=== PATIENT | female | born 2000 | race Caucasian/White ===

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

== ENCOUNTER 2021-04-08 06:39 | Emergency (ER) | payer OTHER ==
[~2021-04-08] VITALS: Ht 160 cm; Wt 49.4 kg
[~2021-04-08 06:39] MED LIST: DOXY100C2 PO; FLUC100T7 PO
--- NOTE | 2021-04-08 07:11 | PHYS DOC ---
Past History Past Medical History: No Pertinent History Past Surgical History: No Surgical History Alcohol Use: None Adult General Chief Complaint Chief Complaint: ABDOMINAL PAIN HPI HPI Patient is a healthy 20-year-old female presenting for right lower quadrant pain. Onset was 2 hours prior to arrival. 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 Reports she was getting up and putting on her daily uniform when bending over and jarring motions of her right leg caused exacerbation of her sharp right lower quadrant pain that did not radiate. Being still makes better. Reports pain is severe during movement and twisting and palpation otherwise if she lays still she is asymptomatic. No recent fever, sick contacts, recent travel, exposure, trauma or UTI-like symptoms reported Review of Systems Review of Systems Fourteen body systems of review of systems have been reviewed. See HPI for pertinent positives and negative responses, other kelly all other systems are negative, non-pertinent or non-contributory Allergies Allergies Allergies Coded Allergies Type Severity Reaction Last Updated Verified No Known Allergies Allergy Unknown 04/08/21 Yes Physical Exam Physical Exam Constitutional: Well developed, well nourished, no acute distress, non-toxic appearance. HENT: Normocephalic, atraumatic, bilateral external ears normal, oropharynx moist, no oral exudates, nose normal. Eyes: PERRLA, EOMI, conjunctiva normal, no discharge. Neck: Normal range of motion, no tenderness, supple, no stridor. Cardiovascular: Heart rate regular, sinus rhythm, no murmurs rubs or gallops Lungs & Thorax: Bilateral breath sounds clear to auscultation Abdomen: Bowel sounds normal, soft, no guarding or rebound but there is point tenderness to McBurney's point and right lower quadrant, negative Denise's sign, positive obturator and positive heel strike, no masses, no pulsatile masses. Skin: Warm, dry, no erythema, no rash. Back: No tenderness, no CVA tenderness. Extremities: No tenderness, no cyanosis, no clubbing, ROM intact, no edema. Neurologic: Alert and oriented X 3, grossly normal motor & sensory function, no focal deficits noted. Psychologic: Affect normal, judgement normal, mood normal. Current Patient Data Vital Signs Vital Signs Date Time Temp Pulse Resp B/P (MAP) Pulse Ox O2 Delivery O2 Flow Rate FiO2 04/08/21 06:53 98.0 76 18 103/59 (74) 99 Lab Results Laboratory Tests Test 04/08/21 07:00 04/08/21 07:07 Urine Collection Type Unknown Urine Color Yellow Urine Clarity Clear Urine pH 6.0 Urine Specific Ulysses >=1.030 Urine Protein Neg Urine Glucose (UA) Neg mg/dL Urine Ketones (Stick) Neg mg/dL Urine Blood Large Urine Nitrite Neg Urine Bilirubin Neg Urine Urobilinogen Dipstick 0.2 mg/dL Urine Leukocyte Esterase Neg Urine RBC 3-5 /HPF Urine WBC 0 /HPF Urine Squamous Epithelial Cells Occ /LPF Urine Bacteria Few /HPF Bedside Urine HCG, Qualitative hcg negative EKG EKG [] Radiology/Procedures Radiology/Procedures INDICATION: Reason: rlq pain, r/o appendicitis / Spl. Instructions: / History: COMPARISON: None. FINDINGS: Focused ultrasound images are obtained of the right lower quadrant of the abdomen. Bowel loops are seen within the right lower quadrant with the appendix not visualized. IMPRESSION: * Appendix is not visualized. Electronically signed by: Bunny Walls MD (04/08/2021 7:46 AM) [id number] ///////////// EXAMINATION: CT ABDOMEN+PELVIS WO CLINICAL HISTORY: Right lower quadrant pain, periumbilical pain TECHNIQUE: Non-IV contrast imaging of the abdomen and pelvis was performed using standard technique, scanning from just above the dome of the diaphragm to the symphysis pubis. Unenhanced imaging is limited for the evaluation of some intra-abdominal and pelvic pathology. CT Dose Reduction Employed: One or more of the following individualized dose reduction techniques were utilized for this examination: 1. Automated exposure control 2. Adjustment of the mA and/or kV according to patient size 3. Use of iterative reconstruction technique. COMPARISON: Abdominal ultrasound same day FINDINGS: Results are unremarkable. Motion degraded images of the lung bases unremarkable. Liver, gallbladder, pancreas, spleen, adrenal glands, and kidneys unremarkable. Mildly filled urinary bladder. Uterus and adnexa within normal limits for patient's age. No dilated bowel. Air-filled appendix within normal limits. No abdominal aortic or iliac artery aneurysm. No evidence of acute osseous abnormality. IMPRESSION: No evidence of acute abdominopelvic abnormality. Electronically signed by: Andrew Denis DO (04/08/2021 8:35 AM) [id number] Heart Score C/O Chest Pain: No Risk Factors: Risk Factors: DM, Current or recent (<one month) smoker, HTN, HLP, family history of CAD, obesity. Risk Scores: Risk Factors: DM, Current or recent (<one month) smoker, HTN, HLP, family history of CAD, obesity. Course & Med Decision Making Course & Med Decision Making ABCs unremarkable. I disclosed entirety of ER findings and discussed most likely diagnosis of abdominal pain unspecified. I discussed this could be due to a most likely self-limiting issue such as musculoskeletal strain versus constipation. With that said, I did disclose this might be an acute presentation of more concerning pathology that was not readily apparent during today's examination. I discussed role of laboratory analysis but joint decision to defer at present. As such, I stressed need for close outpatient follow-up to review today's ER visit. Strict return precautions were also discussed at length with good understanding by patient. Patient voiced understanding and agreement with the plan. Patient knows to come back for repeat evaluation if concerning signs or symptoms present prior to outpatient follow-up. Hemodynamically stable, ambulatory and well-appearing at time of disposition. Dragon Disclaimer Dragon Disclaimer This electronic medical record was generated, in whole or in part, using a voice recognition dictation system. Departure Departure: Impression: Primary Impression: Unspecified abdominal pain Disposition: HOME / SELF CARE / HOMELESS Condition: STABLE Referrals: PCP,UNKNOWN (PCP) Patient Instructions: Abdominal Pain (Nonspecific) Additional Instructions: You have been evaluated in the Emergency Department today for abdominal pain. Your evaluation was not suggestive of any emergent condition requiring medical intervention at this time. However, some abdominal problems make take more time to appear. Therefore, it is important for you to watch for any new symptoms or worsening of your current condition. As discussed, please continue supportive care practices such as taking adequate fluid and fiber intake on discharge home. In addition, you need to call your primary care physician and discuss ER visit today and need for follow-up in outpatient setting for repeat examination Return to the Emergency Department if you experience worsening pain, persistent fevers greater than 100.4, recurrent vomiting, blood in vomit, blood in stool, dark tarry stool, chest pain, difficulty breathing, or any other concerning symptoms. VERITO BLUNT DO Apr 08, 2021 07:11
[2021-04-08 07:20] LABS: BILIRUBIN,URINE NEG (NEG); CLARITY,URINE CLEAR; COLOR,URINE YELLOW; GLUCOSE,URINE NEG (NEG); NITRITE,URINE NEG (NEG); UROBILINOGEN,URINE 0.2 mg/dL (0.2 mg/dL)
[2021-04-08 07:21] LABS: BACTERIA,URINE FEW /HPF (0-FEW); SQUAMOUS EPITHELIAL CELL,UR OCC /LPF; WBC,URINE 0 /HPF (0-4)
--- NOTE | 2021-04-08 07:48 | RAD ---
INDICATION: Reason: rlq pain, r/o appendicitis / Spl. Instructions: / History: COMPARISON: None. FINDINGS: Focused ultrasound images are obtained of the right lower quadrant of the abdomen. Bowel loops are seen within the right lower quadrant with the appendix not visualized. IMPRESSION: * Appendix is not visualized. Electronically signed by: Bunny Walls MD (04/08/2021 7:46 AM) [id number]
--- NOTE | 2021-04-08 08:38 | RAD ---
EXAMINATION: CT ABDOMEN+PELVIS WO CLINICAL HISTORY: Right lower quadrant pain, periumbilical pain TECHNIQUE: Non-IV contrast imaging of the abdomen and pelvis was performed using standard technique, scanning from just above the dome of the diaphragm to the symphysis pubis. Unenhanced imaging is zuñiga ited for the evaluation of some intra-abdominal and pelvic pathology. CT Dose Reduction Employed: One or more of the following individualized dose reduction techniques wer e utilized for this examination: 1. Automated exposure control 2. Adjustment of the mA and/or kV ac cording to patient size 3. Use of iterative reconstruction technique. COMPARISON: Abdominal ultrasound same day FINDINGS: Results are unremarkable. Motion degraded images of the lung bases unremarkable. Liver, gallbladder, pancreas, spleen, adrenal glands, and kidneys unremarkable. Mildly filled urinary bladder. Uterus and adnexa within normal limits for patient's age. No dilated bowel. Air-filled appendix within normal limits. No abdominal aortic or iliac artery aneurysm. No evidence of acute osseous abnormality. IMPRESSION: No evidence of acute abdominopelvic abnormality. Electronically signed by: Andrew Denis DO (04/08/2021 8:35 AM) [id number]
[2021-04-08 09:04] VITALS: BP 101/57
== END 2021-04-08 09:05 | disposition home or self-care (01) ==
LOC: ER 06:39
DX: R10.31 Right lower quadrant pain (principal); F41.8 Other specified anxiety disorders
CPT/HCPCS: 74176; 81001; 81025; 93975; 99285-25

== ENCOUNTER 2021-08-07 18:01 | Emergency (ER) | payer OTHER ==
[~2021-08-07] VITALS: Ht 157.5 cm; Wt 50.0 kg
[~2021-08-07 18:01] MED LIST changes: -DOXY100C2 PO; +DOXY100C3 PO
--- NOTE | 2021-08-07 18:09 | PHYS DOC ---
Past History Past Medical History: No Pertinent History Past Surgical History: No Surgical History Alcohol Use: None General Adult HPI: HPI: ... "I hurt my lower leg and basic training pain is in the medial area of my left knee.... I said I had a meniscus tear..... They never really did anything did not have any x-rays. 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 Patient localizes pain in the collateral ligaments. No appreciable click noted on range of motion. Straining of medial ligaments did cause pain. Patient is able do straight leg lift. There is no ballottement with patella. Distal neurovascular is equal to right. Patient has a slight limp of walk. No recent travel outside [facility] area. No specific ill contacts. No history immunosuppression. Patient will be following at [facility] for care. Patient has never had an x-ray or an MRI of the left knee. Review of Systems: Review of Systems: Constitutional: Denies fever or chills Eyes: Denies change in visual acuity HENT: Denies nasal congestion or sore throat Respiratory: Denies cough or shortness of breath Cardiovascular: Denies chest pain or edema GI: Denies abdominal pain, nausea, vomiting, bloody stools or diarrhea : Denies dysuria Musculoskeletal: Complains of left knee pain Integument: Denies rash Neurologic: Denies headache, focal weakness or sensory changes Endocrine: Denies polyuria or polydipsia Lymphatic: Denies swollen glands Psychiatric: Denies depression or anxiety Family History: Family History: Noncontributory to presentation. Current Medications: Current Meds: See nursing for home meds Allergies: Allergies: Allergies Coded Allergies Type Severity Reaction Last Updated Verified No Known Allergies Allergy Unknown 04/08/21 Yes Physical Exam: PE: Constitutional: Well developed, well nourished, moderate acute distress, non- toxic appearance. [] HENT: Normocephalic, atraumatic, bilateral external ears normal, oropharynx moist, no oral exudates, nose normal. [] Eyes: PERRLA, EOMI, conjunctiva normal, no discharge. [] Neck: Normal range of motion, no tenderness, supple, no stridor. [] Cardiovascular:Heart rate regular rhythm, no murmur [] Lungs & Thorax: Bilateral breath sounds clear to auscultation [] Abdomen: Bowel sounds normal, soft, no tenderness, no masses, no pulsatile masses. [] Skin: Warm, dry, no erythema, no rash. [] Back: No tenderness, no CVA tenderness. [] Extremities: No tenderness, no cyanosis, no clubbing, ROM intact, no edema. [] Except findings in left knee as per HPI. Neurologic: Alert and oriented X 3, normal motor function, normal sensory function, no focal deficits noted. [] Psychologic: Affect anxious, judgement normal, mood normal. [] EKG: EKG: [] Radiology/Procedures: Radiology/Procedures: [][place] [id number] IMAGING REPORT Signed PATIENT: ELEUTERIO MOLINA ACCOUNT: [id number] : 2000 LOCATION: ER AGE: 20 SEX: F EXAM STATUS: REG ER ORD. PHYSICIAN: CHRISTEN FERRERA MD REASON: injury during basic training, left knee pain PROCEDURE: KNEE LEFT 4V XR KNEE _4 VIEWS WITH PATELLA_LT DATE: 08/07/2021 6:41 PM INDICATION: injury during basic training, left knee pain COMPARISON: None. FINDINGS: Bones: There is no evidence of acute fracture or dislocation. Joints: The joint spaces are normal. There is no joint effusion. Miscellaneous: None. IMPRESSION: No evidence of acute fracture. Electronically signed by: Caden Orozco MD (08/07/2021 8:01 PM) [facility] [place] DICTATED AND SIGNED BY: CADEN OROZCO MD DATE: 08/07/212000 CC: CHRISTEN FERRERA MD; GINI JAMES MD ~MTH0 0 Heart Score: C/O Chest Pain: N/A Risk Factors: Risk Factors: DM, Current or recent (<one month) smoker, HTN, HLP, family history of CAD, obesity. Risk Scores: Score 0 - 3: 2.5% MACE over next 6 weeks - Discharge Home Score 4 - 6: 20.3% MACE over next 6 weeks - Admit for Clinical Observation Score 7 - 10: 72.7% MACE over next 6 weeks - Early Invasive Strategies Course & Med Decision Making: Course & Med Decision Making Pertinent Labs and Imaging studies reviewed. (See chart for details) Wear splint. Ice. Elevation. Take Tylenol and ibuprofen for pain. Follow-up primary care. Consider orthopedic evaluation. Follow-up with [facility]. Impression: 1. Left collateral ligament injury-medial 2. History of left medial meniscus injury. [] Cesar Disclaimer: Cesar Disclaimer: This electronic medical record was generated, in whole or in part, using a voice recognition dictation system. Departure Departure: Referrals: GINI JAMES MD (PCP) Cesar Disclaimer This chart was dictated in whole or in part using Voice Recognition software in a busy, high-work load, and often noisy Emergency Department environment. It may contain unintended and wholly unrecognized errors or omissions. CHRISTEN FERRERA MD Aug 07, 2021 18:09
[2021-08-07 18:13] VITALS: BP 114/58
[2021-08-07] MEDS ORDERED: KETOROLAC 60 MG/2 ML VIAL. IM ONE (18:30)
[2021-08-07 19:06] LABS: BACTERIA,URINE 0 /HPF (0-FEW); BILIRUBIN,URINE NEG (NEG); CLARITY,URINE CLEAR; COLOR,URINE YELLOW; GLUCOSE,URINE NEG (NEG); NITRITE,URINE NEG (NEG); RBC,URINE 0 /HPF (0-2); SQUAMOUS EPITHELIAL CELL,UR FEW /LPF; UROBILINOGEN,URINE 0.2 mg/dL (0.2 mg/dL); WBC,URINE OCC /HPF (0-4)
--- NOTE | 2021-08-07 20:04 | RAD ---
XR KNEE _4 VIEWS WITH PATELLA_LT DATE: 08/07/2021 6:41 PM INDICATION: injury during basic training, left knee pain COMPARISON: None. FINDINGS: Bones: There is no evidence of acute fracture or dislocation. Joints: The joint spaces are normal. There is no joint effusion. Miscellaneous: None. IMPRESSION: No evidence of acute fracture. Electronically signed by: Dontrell Orozco MD (08/07/2021 8:01 PM) ESTELLE
== END 2021-08-07 21:06 | disposition home or self-care (01) ==
LOC: ER 18:01
DX: S89.92XA Unspecified injury of left lower leg, initial encounter (principal); X58.XXXA Exposure to other specified factors, initial encounter; Y93.89 Activity, other specified; Y92.89 Other specified places as the place of occurrence of the external cause; Y99.8 Other external cause status
CPT/HCPCS: 29505; 73564; 81001; 81025; 99284

== ENCOUNTER 2021-11-11 16:34 | Emergency (ER) | payer OTHER ==
[~2021-11-11] VITALS: Ht 157.5 cm; Wt 49.4 kg
[2021-11-11] MEDS ORDERED: KETOROLAC 15 MG/ML VIAL. IVP ONE (17:30)
[2021-11-11] MEDS ORDERED: IV NORMAL SALINE 1,000ML 1,000 ML IV ONE (17:30)
--- NOTE | 2021-11-11 18:17 | RAD ---
US ABDOMEN LIMITED, US PELVIS W/TV History: Reason: RLQ PAIN / Spl. Instructions: / History: Comparison: None Technique: Grayscale and color Doppler imaging of the pelvis was performed using transabdominal and t ransvaginal technique. Findings: The uterus measures 8.4 x 4.1 x 3.3 cm. Uterus has an unremarkable appearance. The endometrial stri pe measures 9 mm. Right ovary measures 3.0 x 2.6 x 1.2 cm. Left ovary measures 1.8 x 1.9 x 1.4 cm. Normal Doppler flow to the ovaries. No adnexal masses are seen. IMPRESSION: 1. Unremarkable pelvic ultrasound. Electronically signed by: Edmar Rivera DO (11/11/2021 6:15 PM) [facility]
--- NOTE | 2021-11-11 18:39 | PHYS DOC ---
Past History Past Medical History: No Pertinent History Additional Past Medical Histor: PTSD (ALEXSANDER FORBES APRN) Past Surgical History: No Surgical History (ALEXSANDER FORBES APRN) Alcohol Use: None (ALEXSANDER FORBES APRN) General Adult EDM: Chief Complaint: ABDOMINAL PAIN HPI: HPI: Patient is a 21-year-old female who presents to the emergency department for a 2-day history of right lower pelvic/abdominal cramping that was worse this morning. Patient reports that this pain has been intermittent x1 year. Patient denies any vaginal bleeding or discharge, nausea, vomiting, diarrhea, fever, urinary symptoms. Her last menstrual period was October 15. (ALEXSANDER FORBES APRN) Review of Systems: Review of Systems: Constitutional: negative unless reported in HPI Eyes: negative unless reported in HPI HENT: negative unless reported in HPI Respiratory: negative unless reported in HPI Cardiovascular: negative unless reported in HPI GI: negative unless reported in HPI : negative unless reported in HPI Musculoskeletal: negative unless reported in HPI Integument: negative unless reported in HPI Neurologic: negative unless reported in HPI Endocrine: negative unless reported in HPI Lymphatic: negative unless reported in HPI Psychiatric: negative unless reported in HPI (ALEXSANDER FORBES APRN) Current Medications: Current Meds: Current Medications Medications (Trade) Dose Ordered Sig/Pedro Start Time Stop Time Status Last Admin Dose Admin Ketorolac Tromethamine (Toradol 15mg Vial) 15 mg 1X ONCE 11/11/21 17:30 11/11/21 17:45 DC 11/11/21 18:32 15 MG Sodium Chloride 1,000 ml @ 1,000 mls/hr 1X ONCE 11/11/21 17:30 11/11/21 18:29 DC 11/11/21 18:31 1,000 MLS/HR (ALEXSANDER FORBES APRN) Allergies: Allergies: Allergies Coded Allergies Type Severity Reaction Last Updated Verified No Known Allergies Allergy Unknown 04/08/21 Yes (ALEXSANDER FORBES APRN) Physical Exam: PE: Constitutional: Well developed, well nourished, no acute distress, non-toxic appearance. [] HENT: Normocephalic, atraumatic, bilateral external ears normal, oropharynx moist, no oral exudates, nose normal. [] Eyes: PERRL, EOMI, conjunctiva normal, no discharge. [] Neck: Normal range of motion, no stridor Cardiovascular:Heart rate regular rhythm, no murmur [] Lungs & Thorax: Bilateral breath sounds clear to auscultation [] Abdomen: Bowel sounds normal, soft, right lower abdomen/pelvic tenderness with deep palpation, no abdominal rigidity or guarding, no rebound tenderness, no masses, no pulsatile masses. [] Skin: Warm, dry, no erythema, no rash. [] Back: No tenderness, no CVA tenderness. [] Extremities: No tenderness, no cyanosis, no clubbing, ROM intact, no edema. [] Neurologic: Alert and oriented X 3, normal motor function, normal sensory fu nction, no focal deficits noted. [] Psychologic: Affect normal, judgement normal, mood normal. [] (ALEXSANDER FORBES APRN) Current Patient Data: Vital Signs: Vital Signs Date Time Temp Pulse Resp B/P (MAP) Pulse Ox O2 Delivery O2 Flow Rate FiO2 11/11/21 16:57 99.1 78 16 118/67 (84) 99 Room Air (ALEXSANDER FORBES APRN) EKG: EKG: [] (ALEXSANDER FORBES APRN) Radiology/Procedures: Radiology/Procedures: []PROCEDURE: US PELVIS W/TV US ABDOMEN LIMITED, US PELVIS W/TV History: Reason: RLQ PAIN / Spl. Instructions: / History: Comparison: None Technique: Grayscale and color Doppler imaging of the pelvis was performed using transabdominal and transvaginal technique. Findings: The uterus measures 8.4 x 4.1 x 3.3 cm. Uterus has an unremarkable appearance. The endometrial stripe measures 9 mm. Right ovary measures 3.0 x 2.6 x 1.2 cm. Left ovary measures 1.8 x 1.9 x 1.4 cm. Normal Doppler flow to the ovaries. No adnexal masses are seen. IMPRESSION: 1. Unremarkable pelvic ultrasound. Electronically signed by: Edmar Rivera DO (11/11/2021 6:15 PM) [facility] DICTATED AND SIGNED BY: EDMAR RIVERA DO DATE: 11/11/211813 CC: EMERGENCY,DEPARTMENT; ALEXSANDER FORBES APRN; PCP,UNKNOWN ~MTH0 0 ADDENDUM #1 Addendum: US ABDOMEN LIMITED, US PELVIS W/TV History: Reason: RLQ PAIN / Spl. Instructions: / History: Comparison: None. Technique: Transabdominal ultrasound images are obtained of the right lower quadrant Findings: Appendix not visualized. Peristalsing bowel within the right lower quadrant. IMPRESSION: 1. Appendix not identified. Electronically signed by: Edmar Rivera DO (11/11/2021 6:40 PM) [facility] (ALEXSANDER FORBES APRN) Heart Score: C/O Chest Pain: N/A Risk Factors: Risk Factors: DM, Current or recent (<one month) smoker, HTN, HLP, family history of CAD, obesity. Risk Scores: Score 0 - 3: 2.5% MACE over next 6 weeks - Discharge Home Score 4 - 6: 20.3% MACE over next 6 weeks - Admit for Clinical Observation Score 7 - 10: 72.7% MACE over next 6 weeks - Early Invasive Strategies (ALEXSANDER FORBES APRN) Course & Med Decision Making: Course & Med Decision Making Pertinent Labs and Imaging studies reviewed. (See chart for details) Patient presents to the emergency department for right lower abdominal/pelvic cramping x2 days that is been intermittent for a year. Work-up in the emergency department consisted of blood work, urinalysis and ultrasound of the pelvis and right lower quadrant. Ultrasound of pelvis showed no acute findings, appendix not visualized.Remainder of patients lab work is pending at this time. I discussed patients case with MAX Feldman and she will assume patient care at this time due to shift change. 1900. (ALEXSANDER FORBES APRN) Course & Med Decision Making I assumed care of this patient and received signout from HERMANN Doshi. I did repeat an abdominal exam which did not reveal any tenderness or peritoneal signs. Negative Rovsing sign, negative McBurney's point tenderness, negative psoas sign, no pain elicited with heel strike. Labs are unremarkable. While the appendix was not seen on ultrasound imaging performed, diagnosis is highly unlikely given physical exam. No CT imaging was performed at this time due to risk versus minimal benefit. This was discussed with the patient as well. Patient will be discharged to home with instruction to use [id number] NSAIDs for cramping and to follow-up with a assembler lay ups for any further complaints. All of patient's questions were answered. Return precautions were provided. Patient understands and is agreeable to discharge plan. (MIGUEL BARRY) Dragon Disclaimer: Dragon Disclaimer: This electronic medical record was generated, in whole or in part, using a voice recognition dictation system. (ALEXSANDER FORBES APRN) Departure Departure: Impression: Primary Impression: Pelvic cramping Disposition: HOME / SELF CARE / HOMELESS Condition: STABLE Referrals: PCP,UNKNOWN (PCP) Patient Instructions: Abdominal Pain, Women, Abdominal or Pelvic Ultrasound, [id number] Additional Instructions: EMERGENCY DEPARTMENT GENERAL DISCHARGE INSTRUCTIONS Thank you for coming to [facility] (ED) today and trusting us with you care. We trust that you had a positive experience in our Emergency Department. If you wish to speak to the department management, you may call the director at [phone]. YOUR FOLLOW UP INSTRUCTIONS ARE FOLLOWS: 1. Follow up with your primary care doctor. If you do not have a primary docto r, please ask for a resource list of physicians or clinics that may be able to assist you with follow up care. 2. The emergency provider has interpreted your imaging studies, if any were ordered. The radiology beef specialist also reviewed them. If there is a change in the findings, you will be notified in 48 hours when at all possible. 3. If a lab test or culture has been done, your results will be reviewed and you will be notified if you need a change in treatment. 4. Follow instructions verbalized to you and refer to the printouts if needed. ADDITIONAL INSTRUCTIONS AND INFORMATION: 1. Your care today has been supervised by a physician who is specially trained in emergency care. Many problems require more than one evaluation for a complete diagnosis and treatment. We recommend that you schedule your follow up appointment as recommended to ensure complete treatment of you illness or injury. If you are unable to obtain follow up care and continue to have a problem, or if your condition worsens, we recommend that you return to the ED. 2. We are not able to safely determine your condition over the phone nor are we able to give sound medical advice over the phone. For these safety reasons, if you call for medical advice we will ask you to come to the ED for further evaluation. 3. If you have any questions regarding these discharge instructions please call the ED at [phone]. SAFETY INFORMATION: In the interest of safety, wellness, and injury prevention; we encourage you to wear your seat belt, if you smoke; quite smoking, and we encourage family to use a protective helmet for bicycling and other sporting events that present an increased risk for head injury. IF YOUR SYMPTOMS WORSEN OR NEW SYMPTOMS DEVELOP, OR YOU HAVE CONCERNS ABOUT YOUR CONDITION; OR IF YOUR CONDITION WORSENS WHILE YOU ARE WAITING FOR YOUR FOLLOW UP APPOINTMENT; EITHER CONTACT YOUR PRIMARY CARE DOCTOR, THE PHYSICIAN WHOSE NAME AND NUMBER YOU WERE GIVEN, OR RETURN TO THE ED IMMEDIATELY. Attending Signature Attending Signature I have reviewed the PA/GLOBAL COMPENSATION MANAGER's note and plan of care. I was available for consultation as needed during the patient's visit in the emergency department. I agree with the clinical impression, plan, and disposition. (EMMA ZHU DO) ALEXSANDER FORBES APRN Nov 11, 2021 18:39 MIGUEL BARRY Nov 11, 2021 19:57 EMMA ZHU DO Nov 11, 2021 21:51
[2021-11-11 18:48] LABS: BASO % 0 % (0-3); EOS # 0.1 x10^3/uL (0.0-0.7); EOS % 1 % (0-3); HEMOGLOBIN 13.5 g/dL (12.0-15.5); LYMPH # 2.1 x10^3/uL (1.0-4.8); LYMPH % 42 % (24-48); MEAN CORPUSCULAR HEMOGLOBIN 31 pg (25-35); MEAN CORPUSCULAR HGB CONC 34 g/dL (31-37); MEAN CORPUSCULAR VOLUME 92 fL (79-100); MONO # 0.5 x10^3/uL (0.0-1.1); MONO % 10 % (0-9); NEUT # 2.3 x10^3uL (1.8-7.7); NEUT % 46 % (31-73); PLATELET COUNT 176 x10^3/uL (140-400); RED BLOOD COUNT 4.33 x10^6/uL (3.50-5.40); RED CELL DISTRIBUTION WIDTH 12.2 % (11.5-14.5)
[2021-11-11 19:08] LABS: CALCIUM 8.5 mg/dL (8.5-10.1); CREATININE 0.8 mg/dL (0.6-1.0); GFR 91.4; POTASSIUM 4.2 mmol/L (3.5-5.1)
[2021-11-11 19:14] LABS: ALBUMIN 4.2 g/dL (3.4-5.0); ALBUMIN/GLOBULIN RATIO 1.3 (1.0-1.7); TOTAL BILIRUBIN 0.6 mg/dL (0.2-1.0); TOTAL PROTEIN 7.4 g/dL (6.4-8.2)
[2021-11-11 19:42] VITALS: BP 105/52
[2021-11-11 19:49] LABS: BILIRUBIN,URINE NEG (NEG); CLARITY,URINE CLEAR; COLOR,URINE COLORLESS; GLUCOSE,URINE NEG (NEG)
[2021-11-11 19:50] LABS: BACTERIA,URINE 0 /HPF (0-FEW); NITRITE,URINE NEG (NEG); RBC,URINE OCC /HPF (0-2); UROBILINOGEN,URINE 0.2 mg/dL (0.2 mg/dL); WBC,URINE 0 /HPF (0-4)
== END 2021-11-11 20:10 | disposition home or self-care (01) ==
LOC: ER 16:34
DX: R10.2 Pelvic and perineal pain (principal); F43.10 Post-traumatic stress disorder, unspecified
CPT/HCPCS: 36415; 76830; 76856; 80053; 81001; 81025; 85025; 93976; 96361; 96374; 99284; J1885; J7030